=== PATIENT | female | born 1950 | race Caucasian/White ===

== ENCOUNTER 2025-05-13 11:04 | Emergency (ER) | payer MEDICARE, OTHER ==
[2025-05-13] MEDS ORDERED: Acetaminophen 500 MG TAB ONE ×2 (12:08→12:16)
== END 2025-05-13 14:06 | disposition home or self-care (01) ==
LOC: ERS 11:04
DX: S80.02XA Contusion of left knee, initial encounter (principal); M79.662 Pain in left lower leg; M25.572 Pain in left ankle and joints of left foot; I10 Essential (primary) hypertension; I25.10 Atherosclerotic heart disease of native coronary artery without angina pectoris; Z95.5 Presence of coronary angioplasty implant and graft; W01.0XXA Fall on same level from slipping, tripping and stumbling without subsequent striking against object, initial encounter; Y92.002 Bathroom of unspecified non-institutional (private) residence as the place of occurrence of the external cause
CPT/HCPCS: 99283